=== PATIENT | male | born 1930 | race Hispanic/Latino ===

== ENCOUNTER 2020-11-01 00:13 | Emergency (ER) | payer MEDICARE ==
[2020-11-01 00:41] LABS: CREATININE 1.2 mg/dL (0.5-1.5); POTASSIUM 4.2 mmol/L (3.5-5.1)
[2020-11-01 00:43] LABS: INR 1.15 (0.85-1.15); PROTHROMBIN TIME 12.4 SEC (9.6-11.6)
[2020-11-01 00:44] LABS: PARTIAL THROMBOPLASTIN TIME 27.5 SEC (26.3-35.5)
[2020-11-01 00:46] LABS: ALBUMIN 3.3 g/dL (3.5-5.0); BILIRUBIN,TOTAL 0.6 mg/dL (0.2-1.0); TOTAL PROTEIN, SERUM 7.3 g/dL (6.0-8.3)
[2020-11-01 00:49] LABS: BASOPHILS % (AUTO) 0.7 % (0.0-5.0); EOSINOPHILS % (AUTO) 4.5 % (0.0-8.0); HEMATOCRIT 34.2 % (42-54); LYMPHOCYTES % (AUTO) 37.7 % (21.0-51.0); MEAN CORPUSCULAR HEMOGLOBIN 30.4 pg (27.0-33.0); MEAN CORPUSCULAR HGB CONC 34.2 g/dL (32.0-36.0); MEAN CORPUSCULAR VOLUME 88.8 fL (79-99); MONOCYTES % (AUTO) 10.8 % (3.0-13.0); NEUTROPHILS % (AUTO) 46.1 % (40.0-77.0); PLATELET COUNT (AUTO) 161 K/uL (130-400); RED BLOOD CELL COUNT(AUTO) 3.85 MIL/uL (4.50-6.20); RED CELL DISTRIBUTION WIDTH 13.7 % (11.0-15.5)
[2020-11-01] MEDS ORDERED: FUROSEMIDE 10 MG/ML 4ML VIAL ONE (01:19)
[2020-11-01] MEDS ORDERED: ASPIRIN 325 MG TABLET ONE (01:27)
[2020-11-01 01:47] LABS: APPEARANCE,URINE Clear (CLEAR); BILIRUBIN,URINE Negative (NEGATIVE); COLOR,URINE Yellow (YELLOW); GLUCOSE, URINE (UA) Negative (NEGATIVE); KETONES,URINE Trace mg/dL (NEGATIVE); LEUKOCYTE ESTERASE ,URINE Trace (NEGATIVE); NITRATE,URINE Negative (NEGATIVE); OCCULT BLOOD,URINE Negative (NEGATIVE); PROTEIN,URINE POS 1+ mg/dL (NEGATIVE)
[2020-11-01 02:03] LABS: BACTERIA,URINE None Seen /HPF (None Seen); MUCUS,URINE Few LPF (None Seen); RBC,URINE None Seen /HPF (0-1); SQUAMOUS EPITHELIAL CELL,UR Few /HPF (0-2); WBC,URINE 0-1 /HPF (0-1)
== END 2020-11-01 05:32 | disposition home or self-care (01) ==
LOC: EDH 00:13
DX: R07.89 Other chest pain (principal); I50.43 Acute on chronic combined systolic (congestive) and diastolic (congestive) heart failure; E11.9 Type 2 diabetes mellitus without complications; I10 Essential (primary) hypertension
CPT/HCPCS: 36415; 71045; 80053; 81001; 83880; 84484 ×2; 85025; 85610; 85730; 93005 ×2; 96374; 99285; J1940

== ENCOUNTER 2020-11-04 13:50 | Inpatient (IN) | payer MEDICARE ==
[~2020-11-04] VITALS: Ht 165.1 cm; Wt 65.3 kg
[2020-11-04 14:33] LABS: BASOPHILS % (AUTO) 0.4 % (0.0-5.0); EOSINOPHILS % (AUTO) 4.6 % (0.0-8.0); HEMATOCRIT 34.6 % (42-54); LYMPHOCYTES % (AUTO) 28.7 % (21.0-51.0); MEAN CORPUSCULAR HEMOGLOBIN 30.8 pg (27.0-33.0); MEAN CORPUSCULAR HGB CONC 34.7 g/dL (32.0-36.0); MEAN CORPUSCULAR VOLUME 88.7 fL (79-99); MONOCYTES % (AUTO) 11.3 % (3.0-13.0); NEUTROPHILS % (AUTO) 54.7 % (40.0-77.0); PLATELET COUNT (AUTO) 152 K/uL (130-400); WHITE BLOOD COUNT (AUTO) 7.2 K/uL (4.8-10.8)
[2020-11-04 15:01] LABS: POTASSIUM 3.9 mmol/L (3.5-5.1)
[2020-11-04 15:06] LABS: ALBUMIN 3.4 g/dL (3.5-5.0); BILIRUBIN,TOTAL 0.7 mg/dL (0.2-1.0); TOTAL PROTEIN, SERUM 7.4 g/dL (6.0-8.3)
[2020-11-04 15:09] LABS: B-TYPE NATRIURETIC PEPTIDE 2260 pg/mL (0-100)
[2020-11-04] MEDS ORDERED: FUROSEMIDE 40MG VIAL ONE (16:17)
[2020-11-04] MEDS ORDERED: CEFTRIAXONE 1G VIAL IVP SCH (17:00)
[2020-11-04] MEDS ORDERED: MAGNESIUM 2GM PREMIX 50ML 50 ML IV SCH (17:00)
[2020-11-04] MEDS ORDERED: CEFTRIAXONE 1G VIAL ONE (17:12)
[2020-11-04] MEDS ORDERED: MAGNESIUM 2GM PREMIX 50ML 50 ML IV ONE (17:18)
[2020-11-04 17:27] LABS: APPEARANCE,URINE Clear (CLEAR); BILIRUBIN,URINE Negative (NEGATIVE); COLOR,URINE Yellow (YELLOW); GLUCOSE, URINE (UA) Negative (NEGATIVE); KETONES,URINE Negative (NEGATIVE); LEUKOCYTE ESTERASE ,URINE Negative (NEGATIVE); NITRATE,URINE Negative (NEGATIVE); OCCULT BLOOD,URINE Negative (NEGATIVE); PROTEIN,URINE Negative (NEGATIVE); UROBILINOGEN,URINE 0.2 mg/dL (0.2-1.0)
[2020-11-04] MEDS ORDERED: ACETAMINOPHEN 325 MG TAB PO PRN (17:45)
[2020-11-04 18:06] LABS: HEMOGLOBIN A1C 8.9 % (4.0-6.0)
[2020-11-04 18:18] LABS: THYROID STIMULATING HORMONE 1.29 uIU/mL (0.36-3.74)
[2020-11-04] MEDS ORDERED: DOXYCYCLINE HYCLATE 100 MG TABLET PO ONE (20:57)
[2020-11-04] MEDS ORDERED: FAMOTIDINE 20MG TAB ONE (20:57)
[2020-11-04] MEDS ORDERED: METOPROLOL TARTRATE 25 MG TAB ONE (20:58)
[2020-11-04] MEDS: DOXYCYCLINE HYCLATE 100 MG TABLET PO SCH (21:00)
[2020-11-05] MEDS ORDERED: FUROSEMIDE 40MG VIAL ONE (05:02)
[2020-11-05 05:30] LABS: BASOPHILS % (AUTO) 0.3 % (0.0-5.0); EOSINOPHILS % (AUTO) 4.4 % (0.0-8.0); HEMATOCRIT 34.6 % (42-54); LYMPHOCYTES % (AUTO) 31.8 % (21.0-51.0); MEAN CORPUSCULAR HEMOGLOBIN 30.4 pg (27.0-33.0); MEAN CORPUSCULAR HGB CONC 35.3 g/dL (32.0-36.0); MEAN CORPUSCULAR VOLUME 86.3 fL (79-99); MONOCYTES % (AUTO) 11.1 % (3.0-13.0); NEUTROPHILS % (AUTO) 52.4 % (40.0-77.0); PLATELET COUNT (AUTO) 144 K/uL (130-400); RED BLOOD CELL COUNT(AUTO) 4.01 MIL/uL (4.50-6.20); RED CELL DISTRIBUTION WIDTH 13.6 % (11.0-15.5); WHITE BLOOD COUNT (AUTO) 6.3 K/uL (4.8-10.8)
[2020-11-05 05:31] LABS: CREATININE 1.1 mg/dL (0.5-1.5); POTASSIUM 3.2 mmol/L (3.5-5.1)
[2020-11-05 05:35] LABS: ALBUMIN 3.2 g/dL (3.5-5.0); BILIRUBIN,TOTAL 0.8 mg/dL (0.2-1.0); MAGNESIUM 4.2 mg/dL (1.80-2.40)
[2020-11-05 05:57] LABS: B-TYPE NATRIURETIC PEPTIDE 1780 pg/mL (0-100)
[2020-11-05] MEDS ORDERED: KCL 20 MEQ ERTAB PO ONE (06:09)
[2020-11-05] MEDS: FUROSEMIDE 20MG VIAL IV SCH ×2 (08:00→20:00)
[2020-11-05] MEDS ORDERED: METOPROLOL TARTRATE 25 MG TAB ONE (08:13)
[2020-11-05] MEDS ORDERED: FAMOTIDINE 20MG TAB ONE (08:13)
[2020-11-05] MEDS ORDERED: DOXYCYCLINE HYCLATE 100 MG TABLET PO ONE (08:13)
[2020-11-05] MEDS ORDERED: ENOXAPARIN SODIUM 40 MG/0.4 ML SYRINGE SQ ONE (08:13)
[2020-11-05] MEDS: ENOXAPARIN SODIUM 40 MG/0.4 ML SYRINGE SQ SCH (09:00)
[2020-11-05] MEDS: DOXYCYCLINE HYCLATE 100 MG TABLET PO SCH ×2 (09:00→21:08)
[2020-11-05] MEDS: FAMOTIDINE 20MG TAB PO SCH (09:00)
[2020-11-05] MEDS: METOPROLOL TARTRATE 25 MG TAB PO SCH ×2 (09:00→21:00)
[2020-11-05] MEDS ORDERED: KCL 20 MEQ ERTAB PO PRN (10:00)
[2020-11-05] MEDS ORDERED: POTASSIUM CHLORIDE 10% ELIXIR 20 MEQ/15 ML UDCUP PO PRN (10:00)
[2020-11-05] MEDS ORDERED: POTASSIUM CHLORIDE 20MEQ/100ML 100 ML IV PRN (10:00)
[2020-11-05] MEDS ORDERED: METO25TA6 PO (10:40)
[2020-11-05] MEDS ORDERED: GLIP1TAB6 PO (10:40)
[2020-11-05] MEDS ORDERED: FAMO20TA8 PO (10:40)
[2020-11-05] MEDS ORDERED: CARV3.12 PO (10:40)
[2020-11-05] MEDS ORDERED: ATOR20TA65 PO (10:40)
[2020-11-05] MEDS ORDERED: FURO20TA4 PO (10:40)
[2020-11-05] MEDS ORDERED: ONDA-104 PO (10:40)
[2020-11-05] MEDS ORDERED: LISI2.5T13 PO (10:40)
[2020-11-05] MEDS: POTASSIUM CHLORIDE 10MEQ SR TAB PO SCH ×2 (12:00→21:08)
[2020-11-05 12:22] VITALS: BP 120/75
[2020-11-05 15:23] VITALS: BP 120/73
[2020-11-05 19:20] VITALS: BP 101/61
[2020-11-05] MEDS ORDERED: ATORVASTATIN 20 MG TABLET PO SCH (21:00)
[2020-11-05] MEDS ORDERED: CEFTRIAXONE 1G VIAL IVP SCH (22:00)
[2020-11-06 00:15] VITALS: BP 120/59
[2020-11-06 04:07] VITALS: BP 123/66
[2020-11-06 05:25] LABS: BASOPHILS % (AUTO) 0.5 % (0.0-5.0); EOSINOPHILS % (AUTO) 5.8 % (0.0-8.0); HEMATOCRIT 34.5 % (42-54); LYMPHOCYTES % (AUTO) 37.9 % (21.0-51.0); MEAN CORPUSCULAR HEMOGLOBIN 30.2 pg (27.0-33.0); MEAN CORPUSCULAR HGB CONC 34.8 g/dL (32.0-36.0); MEAN CORPUSCULAR VOLUME 86.7 fL (79-99); MONOCYTES % (AUTO) 12.3 % (3.0-13.0); NEUTROPHILS % (AUTO) 43.3 % (40.0-77.0); PLATELET COUNT (AUTO) 151 K/uL (130-400); RED BLOOD CELL COUNT(AUTO) 3.98 MIL/uL (4.50-6.20); RED CELL DISTRIBUTION WIDTH 13.5 % (11.0-15.5); WHITE BLOOD COUNT (AUTO) 5.7 K/uL (4.8-10.8)
[2020-11-06 05:35] LABS: ALBUMIN 3.3 g/dL (3.5-5.0); BILIRUBIN,TOTAL 0.7 mg/dL (0.2-1.0); CREATININE 1.1 mg/dL (0.5-1.5); POTASSIUM 3.5 mmol/L (3.5-5.1); TOTAL PROTEIN, SERUM 7.1 g/dL (6.0-8.3)
[2020-11-06 05:45] LABS: B-TYPE NATRIURETIC PEPTIDE 1150 pg/mL (0-100)
[2020-11-06 08:11] VITALS: BP 124/74
[2020-11-06] MEDS: DOXYCYCLINE HYCLATE 100 MG TABLET PO SCH (08:54)
[2020-11-06] MEDS: FAMOTIDINE 20MG TAB PO SCH (08:54)
[2020-11-06] MEDS: POTASSIUM CHLORIDE 10MEQ SR TAB PO SCH (08:54)
[2020-11-06] MEDS: FUROSEMIDE 20MG VIAL IV SCH (08:54)
[2020-11-06] MEDS: ENOXAPARIN SODIUM 40 MG/0.4 ML SYRINGE SQ SCH (08:55)
[2020-11-06] MEDS: METOPROLOL TARTRATE 25 MG TAB PO SCH (09:00)
[2020-11-06 12:19] VITALS: BP 110/66
[2020-11-06] MEDS ORDERED: FUROSEMIDE 40MG VIAL IV SCH (14:45)
[2020-11-06] MEDS ORDERED: ONDANSETRON 4MG TABLET PO PRN (15:00)
[2020-11-06] MEDS ORDERED: [UNRECOGNIZED DRUG - REMARK] MISC SCH (15:15)
[2020-11-06] MEDS ORDERED: KCL 20 MEQ ERTAB PO SCH (16:00)
[2020-11-06] MEDS ORDERED: FUROSEMIDE 40MG VIAL IV ONE (16:15)
[2020-11-06 16:29] VITALS: BP 125/70
[2020-11-06] MEDS ORDERED: GLIPIZIDE 5 MG TABLET PO SCH (17:00)
[2020-11-06] MEDS ORDERED: METFORMIN HCL 500 MG TABLET PO SCH (17:00)
[2020-11-06] MEDS ORDERED: FAMOTIDINE 20MG TAB PO SCH (21:00)
[2020-11-06] MEDS ORDERED: ATORVASTATIN 20 MG TABLET PO SCH (21:00)
[2020-11-06] MEDS ORDERED: CARVEDILOL 3.125 MG TABLET PO SCH (21:00)
[2020-11-07] MEDS ORDERED: LISINOPRIL 2.5 MG TABLET PO SCH (09:00)
[2020-11-07] MEDS ORDERED: NON-FORMULARY MEDICATION 1 EACH (Lisinopril 2.5 MG) PO SCH (09:00)
[2020-11-07] MEDS ORDERED: FUROSEMIDE 20 MG TABLET PO SCH (09:00)
[2021-08-05] MEDS ORDERED: FURO20TA4 PO (13:34)
[2021-08-05] MEDS ORDERED: GLIP1TAB6 PO (13:36)
[2021-08-14] MEDS ORDERED: FURO40TA7 PO (12:29)
[2021-08-14] MEDS ORDERED: SPIR25TA6 PO (12:29)
== END 2020-11-06 17:14 | disposition home or self-care (01) | DRG 293 ==
LOC: EDH 13:50 → OBSVTOIN 16:35 → INTOOBSV 16:35 → EDHIP 16:35 → UNDOADMOB 16:35 → EDHIP 11-05 10:14 → 4BH 11-05 10:51 → EDHIP 11-05 10:51 → UNDODISOB 11-06 17:14
PROVIDERS: ADMIT Internal Medicine; ATTEND Internal Medicine
DX: I11.0 Hypertensive heart disease with heart failure (principal); I50.23 Acute on chronic systolic (congestive) heart failure; E78.5 Hyperlipidemia, unspecified; E11.9 Type 2 diabetes mellitus without complications; Z20.822 Contact with and (suspected) exposure to COVID-19; Z91.81 History of falling; Z79.82 Long term (current) use of aspirin; Z95.810 Presence of automatic (implantable) cardiac defibrillator
CPT/HCPCS: 36415; 70450; 71045; 71250; 72070; 72100; 80053; 80061; 81001; 81003; 82948; 83036; 83735; 83880; 84443; 84484; 85025; 85610; 85730; 87426; 93005; 93306; 93356; 96374; G0378; J0696; J1650; J1940; J3475; U0003

== ENCOUNTER 2020-11-12 00:44 | Inpatient (IN) | payer MEDICARE ==
[~2020-11-12] VITALS: Ht 170.2 cm; Wt 61.2 kg
[~2020-11-12 00:44] MED LIST: ATOR20TA65 PO; CARV3.12 PO; FAMO20TA8 PO; FURO20TA4 PO; GLIP1TAB6 PO; LISI2.5T13 PO; ONDA-104 PO
[2020-11-12] MEDS ORDERED: ASPIRIN 325 MG TABLET ONE (02:33)
[2020-11-12 02:45] LABS: BASOPHILS % (AUTO) 0.6 % (0.0-5.0); EOSINOPHILS % (AUTO) 0.4 % (0.0-8.0); LYMPHOCYTES % (AUTO) 17.1 % (21.0-51.0); MEAN CORPUSCULAR HEMOGLOBIN 29.8 pg (27.0-33.0); MEAN CORPUSCULAR HGB CONC 33.5 g/dL (32.0-36.0); MEAN CORPUSCULAR VOLUME 89.1 fL (79-99); MONOCYTES % (AUTO) 5.2 % (3.0-13.0); NEUTROPHILS % (AUTO) 76.5 % (40.0-77.0); PLATELET COUNT (AUTO) 120 K/uL (130-400); RED BLOOD CELL COUNT(AUTO) 4.49 MIL/uL (4.50-6.20); WHITE BLOOD COUNT (AUTO) 9.1 K/uL (4.8-10.8)
[2020-11-12 02:46] LABS: POTASSIUM 4.1 mmol/L (3.5-5.1)
[2020-11-12 02:50] LABS: ALBUMIN 3.7 g/dL (3.5-5.0); BILIRUBIN,TOTAL 0.5 mg/dL (0.2-1.0); TOTAL PROTEIN, SERUM 7.6 g/dL (6.0-8.3)
[2020-11-12 02:52] LABS: INR 1.09 (0.85-1.15); PROTHROMBIN TIME 11.8 SEC (9.6-11.6)
[2020-11-12 02:53] LABS: PARTIAL THROMBOPLASTIN TIME 21.1 SEC (26.3-35.5)
[2020-11-12 03:05] LABS: B-TYPE NATRIURETIC PEPTIDE 1080 pg/mL (0-100)
[2020-11-12] MEDS ORDERED: FUROSEMIDE 20MG VIAL ONE (03:22)
[2020-11-12] MEDS ORDERED: ACETAMINOPHEN 325 MG TAB PO PRN ×2 (04:15)
[2020-11-12] MEDS ORDERED: LACTULOSE 20 GM/30 ML UDCUP PO PRN (04:15)
[2020-11-12] MEDS ORDERED: ONDANSETRON 4MG INJ IV PRN (04:15)
[2020-11-12] MEDS ORDERED: ZOLPIDEM TARTRATE 5 MG TAB PO PRN (04:15)
[2020-11-12 04:36] LABS: HEMOGLOBIN A1C 8.2 % (4.0-6.0)
[2020-11-12] MEDS ORDERED: NITROGLYCERIN 1GM OINT 1 INCH/1GM TD ONE ×3 (05:17→21:09)
[2020-11-12] MEDS: NITROGLYCERIN 1GM OINT 1 INCH/1GM TD SCH ×3 (06:00→22:00)
[2020-11-12 06:13] LABS: APPEARANCE,URINE Clear (CLEAR); BILIRUBIN,URINE Negative (NEGATIVE); COLOR,URINE Yellow (YELLOW); GLUCOSE, URINE (UA) Negative (NEGATIVE); KETONES,URINE Negative (NEGATIVE); LEUKOCYTE ESTERASE ,URINE Negative (NEGATIVE); NITRATE,URINE Negative (NEGATIVE); OCCULT BLOOD,URINE Negative (NEGATIVE); PROTEIN,URINE Trace mg/dL (NEGATIVE); UROBILINOGEN,URINE 0.2 mg/dL (0.2-1.0)
[2020-11-12 06:29] LABS: TROPONIN I 0.18 ng/mL (0.00-0.06)
[2020-11-12] MEDS: INSULIN HUMULIN R 100 UNIT/ML 3ML SQ SCH ×4 (07:30→21:00)
[2020-11-12] MEDS ORDERED: LISINOPRIL 10 MG TABLET PO SCH (09:00)
[2020-11-12] MEDS: FAMOTIDINE 20MG VIAL IV SCH ×2 (09:00→21:00)
[2020-11-12] MEDS ORDERED: ENOXAPARIN SODIUM 40 MG/0.4 ML SYRINGE SQ SCH (09:00)
[2020-11-12] MEDS: FUROSEMIDE 40MG VIAL IVP SCH ×2 (09:00→21:00)
[2020-11-12] MEDS: ASPIRIN 325 MG TABLET PO SCH (09:00)
[2020-11-12] MEDS: ENOXAPARIN SODIUM 30 MG/0.3 ML SQ SCH (09:00)
[2020-11-12] MEDS: CARVEDILOL 3.125 MG TABLET PO SCH ×2 (09:00→21:00)
[2020-11-12] MEDS ORDERED: ENOXAPARIN SODIUM 40 MG/0.4 ML SYRINGE SQ ONE (11:17)
[2020-11-12] MEDS ORDERED: LISINOPRIL 5 MG TABLET ONE (11:17)
[2020-11-12] MEDS ORDERED: FUROSEMIDE 40MG VIAL ONE ×2 (11:17→17:01)
[2020-11-12] MEDS ORDERED: FAMOTIDINE 20MG VIAL IV ONE ×2 (11:18→21:11)
[2020-11-12] MEDS ORDERED: CARVEDILOL 3.125 MG TABLET PO ONE ×2 (11:18→21:10)
[2020-11-12 12:41] LABS: TROPONIN I 0.19 ng/mL (0.00-0.06)
[2020-11-12] MEDS ORDERED: ACETAMINOPHEN 325 MG TAB ONE (16:21)
[2020-11-12] MEDS: ATORVASTATIN 20 MG TABLET PO SCH (21:00)
[2020-11-12] MEDS ORDERED: CARVEDILOL 3.125 MG TABLET PO SCH (21:00)
[2020-11-12] MEDS: FAMOTIDINE 20MG TAB PO SCH (21:00)
[2020-11-12] MEDS: INSULIN GLARGINE 100 UNITS/ML 10 ML VIAL SQ SCH (21:00)
[2020-11-12 22:45] VITALS: BP 140/78
[2020-11-12 23:14] LABS: TROPONIN I 0.16 ng/mL (0.00-0.06)
[2020-11-13] VITALS (7 sets, daily range): BP systolic 103–118; BP diastolic 39–66
[2020-11-13] MEDS: NITROGLYCERIN 1GM OINT 1 INCH/1GM TD SCH ×3 (06:00→22:00)
[2020-11-13 06:07] LABS: BASOPHILS % (AUTO) 0.8 % (0.0-5.0); HEMATOCRIT 34.6 % (42-54); LYMPHOCYTES % (AUTO) 36.9 % (21.0-51.0); MEAN CORPUSCULAR HEMOGLOBIN 30.2 pg (27.0-33.0); MEAN CORPUSCULAR HGB CONC 34.4 g/dL (32.0-36.0); MEAN CORPUSCULAR VOLUME 87.8 fL (79-99); MONOCYTES % (AUTO) 11.7 % (3.0-13.0); NEUTROPHILS % (AUTO) 46.4 % (40.0-77.0); PLATELET COUNT (AUTO) 162 K/uL (130-400); RED BLOOD CELL COUNT(AUTO) 3.94 MIL/uL (4.50-6.20); RED CELL DISTRIBUTION WIDTH 13.7 % (11.0-15.5)
[2020-11-13] MEDS: INSULIN HUMULIN R 100 UNIT/ML 3ML SQ SCH ×4 (06:08→19:58)
[2020-11-13 06:18] LABS: ALBUMIN 3.2 g/dL (3.5-5.0); BILIRUBIN,TOTAL 0.6 mg/dL (0.2-1.0); CREATININE 1.2 mg/dL (0.5-1.5); POTASSIUM 3.5 mmol/L (3.5-5.1)
[2020-11-13] MEDS: LISINOPRIL 2.5 MG TABLET PO SCH (08:24)
[2020-11-13] MEDS: ASPIRIN 325 MG TABLET PO SCH (08:24)
[2020-11-13] MEDS: FUROSEMIDE 40MG VIAL IVP SCH ×2 (08:24→22:00)
[2020-11-13] MEDS: CARVEDILOL 3.125 MG TABLET PO SCH ×2 (08:25→21:56)
[2020-11-13] MEDS: FAMOTIDINE 20MG VIAL IV SCH ×2 (08:25→21:57)
[2020-11-13] MEDS ORDERED: LIDOCAINE HCL-MPF 1% 2ML VIAL IV PRN (08:30)
[2020-11-13] MEDS ORDERED: POTASSIUM CHLORIDE 10% ELIXIR 20 MEQ/15 ML UDCUP PO PRN (08:30)
[2020-11-13] MEDS ORDERED: POTASSIUM CHLORIDE 20MEQ/100ML 100 ML IV PRN (08:30)
[2020-11-13] MEDS: ENOXAPARIN SODIUM 30 MG/0.3 ML SQ SCH (08:31)
[2020-11-13] MEDS: KCL 20 MEQ ERTAB PO PRN ×2 (08:46→16:56)
[2020-11-13] MEDS ORDERED: NON-FORMULARY MEDICATION 1 EACH (Lisinopril 2.5 MG) PO SCH (09:00)
[2020-11-13] MEDS: FAMOTIDINE 20MG TAB PO SCH (21:56)
[2020-11-13] MEDS: ATORVASTATIN 20 MG TABLET PO SCH (21:57)
[2020-11-13] MEDS: INSULIN GLARGINE 100 UNITS/ML 10 ML VIAL SQ SCH (22:04)
[2020-11-14] VITALS (7 sets, daily range): BP systolic 93–135; BP diastolic 53–72
[2020-11-14 04:46] LABS: HEMATOCRIT 34.4 % (42-54); MEAN CORPUSCULAR HEMOGLOBIN 29.8 pg (27.0-33.0); MEAN CORPUSCULAR VOLUME 87.5 fL (79-99); RED BLOOD CELL COUNT(AUTO) 3.93 MIL/uL (4.50-6.20); RED CELL DISTRIBUTION WIDTH 13.8 % (11.0-15.5); WHITE BLOOD COUNT (AUTO) 7.1 K/uL (4.8-10.8)
[2020-11-14 05:06] LABS: ALBUMIN 3.3 g/dL (3.5-5.0); BILIRUBIN,TOTAL 0.6 mg/dL (0.2-1.0); CREATININE 0.8 mg/dL (0.5-1.5); MAGNESIUM 1.6 mg/dL (1.80-2.40); POTASSIUM 3.4 mmol/L (3.5-5.1); TOTAL PROTEIN, SERUM 7.1 g/dL (6.0-8.3)
[2020-11-14] MEDS: INSULIN HUMULIN R 100 UNIT/ML 3ML SQ SCH ×4 (05:33→21:00)
[2020-11-14] MEDS: NITROGLYCERIN 1GM OINT 1 INCH/1GM TD SCH ×3 (06:27→22:27)
[2020-11-14] MEDS ORDERED: MAGNESIUM 2GM PREMIX 50ML 50 ML IV PRN (09:30)
[2020-11-14] MEDS: LISINOPRIL 2.5 MG TABLET PO SCH (09:46)
[2020-11-14] MEDS: ASPIRIN 325 MG TABLET PO SCH (09:47)
[2020-11-14] MEDS: KCL 20 MEQ ERTAB PO PRN (09:47)
[2020-11-14] MEDS: CARVEDILOL 3.125 MG TABLET PO SCH ×2 (09:48→22:34)
[2020-11-14] MEDS: FUROSEMIDE 40MG VIAL IVP SCH ×2 (09:48→22:26)
[2020-11-14] MEDS: FAMOTIDINE 20MG VIAL IV SCH ×2 (09:49→22:26)
[2020-11-14] MEDS: ENOXAPARIN SODIUM 30 MG/0.3 ML SQ SCH (09:49)
[2020-11-14] MEDS: FAMOTIDINE 20MG TAB PO SCH (21:00)
[2020-11-14] MEDS: ATORVASTATIN 20 MG TABLET PO SCH (22:26)
[2020-11-14] MEDS: INSULIN GLARGINE 100 UNITS/ML 10 ML VIAL SQ SCH (22:31)
[2020-11-15] VITALS (8 sets, daily range): BP systolic 91–122; BP diastolic 52–66
[2020-11-15] MEDS: KCL 20 MEQ ERTAB PO PRN (00:18)
[2020-11-15 04:45] LABS: HEMATOCRIT 34.9 % (42-54); MEAN CORPUSCULAR HEMOGLOBIN 29.6 pg (27.0-33.0); MEAN CORPUSCULAR HGB CONC 33.5 g/dL (32.0-36.0); MEAN CORPUSCULAR VOLUME 88.4 fL (79-99); RED BLOOD CELL COUNT(AUTO) 3.95 MIL/uL (4.50-6.20); RED CELL DISTRIBUTION WIDTH 13.8 % (11.0-15.5); WHITE BLOOD COUNT (AUTO) 6.7 K/uL (4.8-10.8)
[2020-11-15 05:01] LABS: ALBUMIN 3.3 g/dL (3.5-5.0); BILIRUBIN,TOTAL 0.7 mg/dL (0.2-1.0); CREATININE 1.3 mg/dL (0.5-1.5); MAGNESIUM 1.7 mg/dL (1.80-2.40); POTASSIUM 4.2 mmol/L (3.5-5.1); TOTAL PROTEIN, SERUM 7.1 g/dL (6.0-8.3)
[2020-11-15] MEDS: NITROGLYCERIN 1GM OINT 1 INCH/1GM TD SCH ×3 (06:11→21:39)
[2020-11-15] MEDS: INSULIN HUMULIN R 100 UNIT/ML 3ML SQ SCH ×4 (06:12→21:00)
[2020-11-15] MEDS: FUROSEMIDE 40MG VIAL IVP SCH ×2 (09:36→21:36)
[2020-11-15] MEDS: FAMOTIDINE 20MG VIAL IV SCH ×2 (09:36→20:35)
[2020-11-15] MEDS: ASPIRIN 325 MG TABLET PO SCH (09:37)
[2020-11-15] MEDS: CARVEDILOL 3.125 MG TABLET PO SCH ×2 (09:52→21:37)
[2020-11-15] MEDS: ENOXAPARIN SODIUM 30 MG/0.3 ML SQ SCH (09:53)
[2020-11-15] MEDS: FAMOTIDINE 20MG TAB PO SCH (21:37)
[2020-11-15] MEDS: INSULIN GLARGINE 100 UNITS/ML 10 ML VIAL SQ SCH (21:38)
[2020-11-15] MEDS: ATORVASTATIN 20 MG TABLET PO SCH (21:38)
[2020-11-16 04:13] VITALS: BP 92/54
[2020-11-16] MEDS: NITROGLYCERIN 1GM OINT 1 INCH/1GM TD SCH (05:00)
[2020-11-16] MEDS: INSULIN HUMULIN R 100 UNIT/ML 3ML SQ SCH ×2 (05:28→11:30)
[2020-11-16 07:00] VITALS: BP 104/66
[2020-11-16] MEDS ORDERED: FUROSEMIDE 40 MG TABLET PO SCH (09:00)
[2020-11-16] MEDS ORDERED: LISINOPRIL 2.5 MG TABLET PO SCH (09:00)
[2020-11-16] MEDS: ASPIRIN 325 MG TABLET PO SCH (10:28)
[2020-11-16] MEDS: FAMOTIDINE 20MG VIAL IV SCH (10:28)
[2020-11-16] MEDS: CARVEDILOL 3.125 MG TABLET PO SCH (10:29)
[2020-11-16] MEDS: ENOXAPARIN SODIUM 30 MG/0.3 ML SQ SCH (10:29)
[2020-11-16] MEDS ORDERED: LISI2.5T13 PO (10:39)
[2020-11-16] MEDS ORDERED: FURO40TA5 PO (10:39)
[2020-11-16 11:00] VITALS: BP 102/63
[2021-08-05] MEDS ORDERED: FURO20TA4 PO (13:34)
[2021-08-05] MEDS ORDERED: GLIP1TAB6 PO (13:36)
[2021-08-14] MEDS ORDERED: FURO40TA7 PO (12:29)
[2021-08-14] MEDS ORDERED: SPIR25TA6 PO (12:29)
== END 2020-11-16 14:14 | disposition home or self-care (01) | DRG 302 ==
LOC: EDH 00:44 → EDHIP 04:13 → 4DH 21:52
PROVIDERS: ADMIT Internal Medicine; ATTEND Internal Medicine
DX: I25.119 Atherosclerotic heart disease of native coronary artery with unspecified angina pectoris (principal); I50.23 Acute on chronic systolic (congestive) heart failure; Q21.1 Atrial septal defect; I45.2 Bifascicular block; I11.0 Hypertensive heart disease with heart failure; I42.9 Cardiomyopathy, unspecified; R09.02 Hypoxemia; I35.0 Nonrheumatic aortic (valve) stenosis; M41.9 Scoliosis, unspecified; E11.9 Type 2 diabetes mellitus without complications; E78.5 Hyperlipidemia, unspecified; I25.5 Ischemic cardiomyopathy; Z79.899 Other long term (current) drug therapy; Z95.810 Presence of automatic (implantable) cardiac defibrillator; Z20.822 Contact with and (suspected) exposure to COVID-19
CPT/HCPCS: 36415; 71045; 80053; 80061; 81003; 82550; 82948; 83036; 83605; 83690; 83735; 83874; 83880; 84484; 85025; 85027; 85610; 85730; 87426; 93005; 99291; G0378; J1650; J1940; J3475; J3490; U0003

== ENCOUNTER 2020-12-30 11:27 | Inpatient (IN) | payer MEDICARE ==
[~2020-12-30] VITALS: Ht 165.1 cm; Wt 64.0 kg
[~2020-12-30 11:27] MED LIST changes: -FURO20TA4 PO; +FURO40TA5 PO
[2020-12-30 11:41] LABS: HEMATOCRIT 29.7 % (42-54); MEAN CORPUSCULAR HEMOGLOBIN 30.1 pg (27.0-33.0); MEAN CORPUSCULAR HGB CONC 34.7 g/dL (32.0-36.0); MEAN CORPUSCULAR VOLUME 86.8 fL (79-99); MONOCYTES % (AUTO) 10.5 % (3.0-13.0); NEUTROPHILS % (AUTO) 57.3 % (40.0-77.0); PLATELET COUNT (AUTO) 146 K/uL (130-400); RED BLOOD CELL COUNT(AUTO) 3.42 MIL/uL (4.50-6.20); RED CELL DISTRIBUTION WIDTH 14.1 % (11.0-15.5); WHITE BLOOD COUNT (AUTO) 5.7 K/uL (4.8-10.8)
[2020-12-30 11:50] LABS: POTASSIUM 3.7 mmol/L (3.5-5.1)
[2020-12-30 11:58] LABS: ALBUMIN 3.2 g/dL (3.5-5.0); BILIRUBIN,TOTAL 1.1 mg/dL (0.2-1.0); TOTAL PROTEIN, SERUM 6.9 g/dL (6.0-8.3)
[2020-12-30 12:02] LABS: INR 1.12 (0.85-1.15); PROTHROMBIN TIME 12.1 SEC (9.6-11.6)
[2020-12-30 12:03] LABS: PARTIAL THROMBOPLASTIN TIME 27.3 SEC (26.3-35.5)
[2020-12-30 12:06] LABS: B-TYPE NATRIURETIC PEPTIDE 2390 pg/mL (0-100)
[2020-12-30] MEDS ORDERED: NITROGLYCERIN 1GM OINT 1 INCH/1GM TD ONE (12:28)
[2020-12-30] MEDS ORDERED: DIPHENHYDRAMINE HCL 25 MG CAPSULE PO PRN (12:30)
[2020-12-30] MEDS ORDERED: MAG/ALUM/SIMETH 30 ML UDCUP PO PRN (12:30)
[2020-12-30] MEDS ORDERED: LACTULOSE 20 GM/30 ML UDCUP PO PRN (12:30)
[2020-12-30] MEDS ORDERED: ACETAMINOPHEN 325 MG TAB PO PRN ×2 (12:30)
[2020-12-30] MEDS ORDERED: NITROGLYCERIN 0.4 MG SL TAB SL PRN (12:30)
[2020-12-30] MEDS ORDERED: DiphenhydrAMINE HCL 50 MG/ML VIAL IV PRN (12:30)
[2020-12-30] MEDS ORDERED: GUAIFENESIN-DM 200/20 MG 10 ML PO PRN (12:30)
[2020-12-30 13:18] LABS: APPEARANCE,URINE Clear (CLEAR); BILIRUBIN,URINE Negative (NEGATIVE); COLOR,URINE Dark Yellow (YELLOW); GLUCOSE, URINE (UA) Negative (NEGATIVE); KETONES,URINE Trace mg/dL (NEGATIVE); LEUKOCYTE ESTERASE ,URINE Small (NEGATIVE); NITRATE,URINE Negative (NEGATIVE); OCCULT BLOOD,URINE Negative (NEGATIVE); PROTEIN,URINE POS 2+ mg/dL (NEGATIVE)
[2020-12-30 13:25] LABS: AMPHET/METH SCREEN,URINE NEGATIVE (NEGATIVE); BARBITURATE SCREEN, URINE NEGATIVE (NEGATIVE); BENZODIAZEPINES SCREEN,URINE NEGATIVE (NEGATIVE); CANNABINOID SCREEN,URINE NEGATIVE (NEGATIVE); COCAINE SCREEN,URINE NEGATIVE (NEGATIVE); OPIATE SCREEN,URINE NEGATIVE (NEGATIVE); PHENCYCLIDINE SCREEN,URINE NEGATIVE (NEGATIVE)
[2020-12-30 13:28] LABS: BACTERIA,URINE Rare /HPF (None Seen); RBC,URINE 0-1 /HPF (0-1); SQUAMOUS EPITHELIAL CELL,UR Rare /HPF (0-2)
[2020-12-30 18:47] LABS: TROPONIN I 0.11 ng/mL (0.00-0.06)
[2020-12-30] MEDS: FAMOTIDINE 20MG TAB PO SCH (21:00)
[2020-12-30] MEDS: FUROSEMIDE 40MG VIAL IVP SCH (21:00)
[2020-12-30] MEDS: CARVEDILOL 3.125 MG TABLET PO SCH (21:00)
[2020-12-30] MEDS ORDERED: FAMOTIDINE 20MG TAB ONE (22:02)
[2020-12-30] MEDS ORDERED: CARVEDILOL 3.125 MG TABLET PO ONE (22:02)
[2020-12-30] MEDS ORDERED: FUROSEMIDE 40MG VIAL ONE (22:02)
[2020-12-31 00:36] LABS: TROPONIN I 0.1 ng/mL (0.00-0.06)
[2020-12-31 02:34] VITALS: BP 137/76
[2020-12-31 04:00] VITALS: BP 135/73
[2020-12-31 05:30] LABS: BASOPHILS % (AUTO) 0.6 % (0.0-5.0); EOSINOPHILS % (AUTO) 13.6 % (0.0-8.0); HEMATOCRIT 30.9 % (42-54); MEAN CORPUSCULAR HEMOGLOBIN 29.9 pg (27.0-33.0); MEAN CORPUSCULAR HGB CONC 34.3 g/dL (32.0-36.0); MEAN CORPUSCULAR VOLUME 87.3 fL (79-99); MONOCYTES % (AUTO) 9.6 % (3.0-13.0); PLATELET COUNT (AUTO) 146 K/uL (130-400); RED BLOOD CELL COUNT(AUTO) 3.54 MIL/uL (4.50-6.20); RED CELL DISTRIBUTION WIDTH 13.8 % (11.0-15.5); WHITE BLOOD COUNT (AUTO) 6.4 K/uL (4.8-10.8)
[2020-12-31 06:04] LABS: ALBUMIN 3.1 g/dL (3.5-5.0); BILIRUBIN,TOTAL 2.4 mg/dL (0.2-1.0); POTASSIUM 3.3 mmol/L (3.5-5.1); TOTAL PROTEIN, SERUM 6.9 g/dL (6.0-8.3); TROPONIN I 0.09 ng/mL (0.00-0.06)
[2020-12-31 08:00] VITALS: BP 142/77
[2020-12-31] MEDS ORDERED: LIDOCAINE HCL-MPF 1% 2ML VIAL IV PRN (08:15)
[2020-12-31] MEDS ORDERED: ASPIRIN 325 MG TABLET PO SCH (09:00)
[2020-12-31] MEDS: KCL 20 MEQ ERTAB PO PRN ×2 (09:06→17:01)
[2020-12-31] MEDS: FAMOTIDINE 20MG TAB PO SCH ×2 (09:07→20:30)
[2020-12-31] MEDS: FUROSEMIDE 40MG VIAL IVP SCH ×2 (09:07→20:26)
[2020-12-31] MEDS: ENOXAPARIN SODIUM 40 MG/0.4 ML SYRINGE SQ SCH (09:07)
[2020-12-31] MEDS: CARVEDILOL 3.125 MG TABLET PO SCH ×2 (09:07→20:29)
[2020-12-31 12:00] VITALS: BP 130/64
[2020-12-31 15:14] VITALS: BP 122/69
[2020-12-31] MEDS: ONDANSETRON 4MG INJ IV PRN (15:19)
[2020-12-31 19:35] VITALS: BP 122/69
[2021-01-01] VITALS (7 sets, daily range): BP systolic 107–137; BP diastolic 51–73
[2021-01-01 05:08] LABS: BASOPHILS % (AUTO) 0.3 % (0.0-5.0); EOSINOPHILS % (AUTO) 6.1 % (0.0-8.0); MEAN CORPUSCULAR HEMOGLOBIN 30.6 pg (27.0-33.0); MEAN CORPUSCULAR HGB CONC 34.7 g/dL (32.0-36.0); MEAN CORPUSCULAR VOLUME 88.1 fL (79-99); MONOCYTES % (AUTO) 12.6 % (3.0-13.0); NEUTROPHILS % (AUTO) 72.7 % (40.0-77.0); PLATELET COUNT (AUTO) 154 K/uL (130-400); RED BLOOD CELL COUNT(AUTO) 3.86 MIL/uL (4.50-6.20); RED CELL DISTRIBUTION WIDTH 14.1 % (11.0-15.5); WHITE BLOOD COUNT (AUTO) 6.5 K/uL (4.8-10.8)
[2021-01-01 05:34] LABS: ALBUMIN 3.6 g/dL (3.5-5.0); CREATININE 1.3 mg/dL (0.5-1.5); POTASSIUM 3.3 mmol/L (3.5-5.1); TOTAL PROTEIN, SERUM 7.8 g/dL (6.0-8.3)
[2021-01-01 05:59] LABS: B-TYPE NATRIURETIC PEPTIDE 2910 pg/mL (0-100)
[2021-01-01] MEDS: POTASSIUM CHLORIDE 20MEQ/100ML 100 ML IV PRN ×3 (06:27→15:32)
[2021-01-01] MEDS: KCL 20 MEQ ERTAB PO SCH ×2 (07:00→09:15)
[2021-01-01] MEDS: POTASSIUM CHLORIDE 10% ELIXIR 20 MEQ/15 ML UDCUP PO PRN (10:28)
[2021-01-01] MEDS: ASPIRIN 81MG CHEW TAB PO SCH (10:29)
[2021-01-01] MEDS: FAMOTIDINE 20MG TAB PO SCH ×2 (10:30→21:36)
[2021-01-01] MEDS: CARVEDILOL 3.125 MG TABLET PO SCH ×2 (10:30→21:36)
[2021-01-01] MEDS: LISINOPRIL 5 MG TABLET PO SCH (10:30)
[2021-01-01] MEDS: FUROSEMIDE 40MG VIAL IVP SCH ×2 (10:31→21:35)
[2021-01-01] MEDS: ENOXAPARIN SODIUM 40 MG/0.4 ML SYRINGE SQ SCH (10:31)
[2021-01-01] MEDS: INSULIN HUMULIN R 100 UNIT/ML 3ML SQ SCH ×3 (11:30→21:00)
[2021-01-01] MEDS ORDERED: GLUCAGON 1MG KIT 1 MG ML IM PRN (11:30)
[2021-01-01] MEDS ORDERED: DEXTROSE 50%-WATER 50 ML DISP.SYRIN IV PRN (11:30)
[2021-01-01] MEDS: ONDANSETRON 4MG INJ IV PRN ×2 (14:33→14:43)
[2021-01-01] MEDS: MORPHINE 2 MG SYG IV PRN (14:43)
[2021-01-01] MEDS: ATORVASTATIN 40 MG TABLET PO SCH (21:36)
[2021-01-02] MEDS: MORPHINE 2 MG SYG IV PRN (01:55)
[2021-01-02 03:40] VITALS: BP 131/73
[2021-01-02 04:51] LABS: BASOPHILS % (AUTO) 0.3 % (0.0-5.0); EOSINOPHILS % (AUTO) 1.8 % (0.0-8.0); HEMATOCRIT 35.2 % (42-54); LYMPHOCYTES % (AUTO) 12.4 % (21.0-51.0); MEAN CORPUSCULAR HEMOGLOBIN 30.7 pg (27.0-33.0); MEAN CORPUSCULAR HGB CONC 34.9 g/dL (32.0-36.0); MEAN CORPUSCULAR VOLUME 87.8 fL (79-99); MONOCYTES % (AUTO) 15.7 % (3.0-13.0); NEUTROPHILS % (AUTO) 69.5 % (40.0-77.0); PLATELET COUNT (AUTO) 141 K/uL (130-400); RED BLOOD CELL COUNT(AUTO) 4.01 MIL/uL (4.50-6.20); RED CELL DISTRIBUTION WIDTH 14.2 % (11.0-15.5); WHITE BLOOD COUNT (AUTO) 7.4 K/uL (4.8-10.8)
[2021-01-02 05:02] LABS: ALBUMIN 3.4 g/dL (3.5-5.0); BILIRUBIN,TOTAL 0.8 mg/dL (0.2-1.0); CREATININE 1.3 mg/dL (0.5-1.5); POTASSIUM 4.1 mmol/L (3.5-5.1); TOTAL PROTEIN, SERUM 7.4 g/dL (6.0-8.3)
[2021-01-02 05:05] LABS: B-TYPE NATRIURETIC PEPTIDE 1610 pg/mL (0-100)
[2021-01-02] MEDS: INSULIN HUMULIN R 100 UNIT/ML 3ML SQ SCH ×4 (06:33→21:00)
[2021-01-02 08:06] VITALS: BP 129/78
[2021-01-02] MEDS: LISINOPRIL 5 MG TABLET PO SCH (10:21)
[2021-01-02] MEDS: CARVEDILOL 3.125 MG TABLET PO SCH ×2 (10:22→21:22)
[2021-01-02] MEDS: ASPIRIN 81MG CHEW TAB PO SCH (10:22)
[2021-01-02] MEDS: FAMOTIDINE 20MG TAB PO SCH ×2 (10:22→21:22)
[2021-01-02] MEDS: ENOXAPARIN SODIUM 40 MG/0.4 ML SYRINGE SQ SCH (10:23)
[2021-01-02 11:53] VITALS: BP 121/67
[2021-01-02 16:09] VITALS: BP 129/73
[2021-01-02 19:20] VITALS: BP 136/75
[2021-01-02] MEDS: ATORVASTATIN 40 MG TABLET PO SCH (21:22)
[2021-01-02] MEDS: CEFTRIAXONE 1G VIAL IVP SCH (21:22)
[2021-01-02 23:09] VITALS: BP 111/56
[2021-01-03 03:36] VITALS: BP 100/47
[2021-01-03 05:17] LABS: BASOPHILS % (AUTO) 0.3 % (0.0-5.0); HEMATOCRIT 34.9 % (42-54); LYMPHOCYTES % (AUTO) 16.9 % (21.0-51.0); MEAN CORPUSCULAR HEMOGLOBIN 30.1 pg (27.0-33.0); MEAN CORPUSCULAR HGB CONC 34.1 g/dL (32.0-36.0); MEAN CORPUSCULAR VOLUME 88.1 fL (79-99); MONOCYTES % (AUTO) 16.4 % (3.0-13.0); NEUTROPHILS % (AUTO) 65.9 % (40.0-77.0); PLATELET COUNT (AUTO) 157 K/uL (130-400); RED BLOOD CELL COUNT(AUTO) 3.96 MIL/uL (4.50-6.20); RED CELL DISTRIBUTION WIDTH 14.1 % (11.0-15.5); WHITE BLOOD COUNT (AUTO) 6.4 K/uL (4.8-10.8)
[2021-01-03 05:20] LABS: CREATININE 1.3 mg/dL (0.5-1.5); POTASSIUM 3.3 mmol/L (3.5-5.1)
[2021-01-03 05:37] LABS: B-TYPE NATRIURETIC PEPTIDE 2770 pg/mL (0-100)
[2021-01-03] MEDS: INSULIN HUMULIN R 100 UNIT/ML 3ML SQ SCH ×4 (06:13→21:00)
[2021-01-03] MEDS: KCL 20 MEQ ERTAB PO PRN ×2 (06:32→13:42)
[2021-01-03 08:58] VITALS: BP 110/57
[2021-01-03] MEDS: FUROSEMIDE 40 MG TABLET PO SCH (09:23)
[2021-01-03] MEDS: ASPIRIN 81MG CHEW TAB PO SCH (09:50)
[2021-01-03] MEDS: FAMOTIDINE 20MG TAB PO SCH ×2 (09:51→21:00)
[2021-01-03] MEDS: CARVEDILOL 3.125 MG TABLET PO SCH ×2 (09:51→21:00)
[2021-01-03] MEDS: LISINOPRIL 5 MG TABLET PO SCH (09:51)
[2021-01-03] MEDS: ENOXAPARIN SODIUM 40 MG/0.4 ML SYRINGE SQ SCH (09:52)
[2021-01-03] MEDS: POTASSIUM CHLORIDE 10% ELIXIR 20 MEQ/15 ML UDCUP PO PRN (11:13)
[2021-01-03 12:48] VITALS: BP 121/62
[2021-01-03 16:28] VITALS: BP 116/60
[2021-01-03] MEDS ORDERED: ARTIFICAL TEARS SOL 15 ML OU PRN (16:30)
[2021-01-03 20:20] VITALS: BP 132/72
[2021-01-03] MEDS: ATORVASTATIN 40 MG TABLET PO SCH (21:00)
[2021-01-03] MEDS: CEFTRIAXONE 1G VIAL IVP SCH (21:01)
[2021-01-03 23:41] VITALS: BP 112/57
[2021-01-04 04:39] VITALS: BP 102/52
[2021-01-04 05:47] LABS: BASOPHILS % (AUTO) 0.6 % (0.0-5.0); EOSINOPHILS % (AUTO) 2.7 % (0.0-8.0); HEMATOCRIT 35.8 % (42-54); LYMPHOCYTES % (AUTO) 32.9 % (21.0-51.0); MEAN CORPUSCULAR HEMOGLOBIN 29.5 pg (27.0-33.0); MEAN CORPUSCULAR HGB CONC 33.5 g/dL (32.0-36.0); MONOCYTES % (AUTO) 17.6 % (3.0-13.0); PLATELET COUNT (AUTO) 153 K/uL (130-400); RED BLOOD CELL COUNT(AUTO) 4.07 MIL/uL (4.50-6.20); RED CELL DISTRIBUTION WIDTH 14.1 % (11.0-15.5); WHITE BLOOD COUNT (AUTO) 4.9 K/uL (4.8-10.8)
[2021-01-04 05:53] LABS: CREATININE 1.2 mg/dL (0.5-1.5); POTASSIUM 3.5 mmol/L (3.5-5.1)
[2021-01-04] MEDS: KCL 20 MEQ ERTAB PO PRN ×2 (06:31→12:40)
[2021-01-04] MEDS: INSULIN HUMULIN R 100 UNIT/ML 3ML SQ SCH ×2 (06:32→12:42)
[2021-01-04 08:45] VITALS: BP 126/61
[2021-01-04] MEDS: CARVEDILOL 3.125 MG TABLET PO SCH (08:47)
[2021-01-04] MEDS: FAMOTIDINE 20MG TAB PO SCH (08:47)
[2021-01-04] MEDS: LISINOPRIL 5 MG TABLET PO SCH (08:47)
[2021-01-04] MEDS: FUROSEMIDE 40 MG TABLET PO SCH (08:48)
[2021-01-04] MEDS: ASPIRIN 81MG CHEW TAB PO SCH (08:48)
[2021-01-04] MEDS: ENOXAPARIN SODIUM 40 MG/0.4 ML SYRINGE SQ SCH (08:50)
[2021-01-04] MEDS ORDERED: FURO40TA5 PO (09:24)
[2021-01-04] MEDS ORDERED: ASPI-1005 PO (09:24)
[2021-01-04 12:28] VITALS: BP 96/60
[2021-01-04] MEDS ORDERED: CEFD300C3 PO (13:50)
[2021-08-05] MEDS ORDERED: FURO20TA4 PO (13:34)
[2021-08-05] MEDS ORDERED: GLIP1TAB6 PO (13:36)
[2021-08-14] MEDS ORDERED: SPIR25TA6 PO (12:29)
[2021-08-14] MEDS ORDERED: FURO40TA7 PO (12:29)
== END 2021-01-04 15:00 | disposition home or self-care (01) | DRG 302 ==
LOC: EDH 11:27 → OBSVTOIN 12:26 → EDHIP 12:26 → 4CH 12-31 02:17
PROVIDERS: ADMIT Family Medicine; ATTEND Family Medicine
DX: I25.119 Atherosclerotic heart disease of native coronary artery with unspecified angina pectoris (principal); I50.23 Acute on chronic systolic (congestive) heart failure; I11.0 Hypertensive heart disease with heart failure; I35.0 Nonrheumatic aortic (valve) stenosis; E11.9 Type 2 diabetes mellitus without complications; E78.00 Pure hypercholesterolemia, unspecified; I25.5 Ischemic cardiomyopathy; E78.5 Hyperlipidemia, unspecified; R29.6 Repeated falls; E87.6 Hypokalemia; M41.9 Scoliosis, unspecified; N40.0 Benign prostatic hyperplasia without lower urinary tract symptoms; N20.0 Calculus of kidney; K80.20 Calculus of gallbladder without cholecystitis without obstruction; K52.9 Noninfective gastroenteritis and colitis, unspecified; F03.90 Unspecified dementia, unspecified severity, without behavioral disturbance, psychotic disturbance, mood disturbance, and anxiety; Z20.822 Contact with and (suspected) exposure to COVID-19; Z95.5 Presence of coronary angioplasty implant and graft; Z91.81 History of falling; Z95.810 Presence of automatic (implantable) cardiac defibrillator; Z79.82 Long term (current) use of aspirin; Z79.899 Other long term (current) drug therapy; Z83.3 Family history of diabetes mellitus
CPT/HCPCS: 36415; 71045; 74176; 80048; 80053; 80305; 81001; 82270; 82550; 82948; 83605; 83630; 83874; 83880; 84145; 84484; 85025; 85610; 85730; 87040; 87046; 87426; 93005; 97039; G0378; J0696; J1650; J1815; J1940; J2405; J3480; J3490; U0003